=== PATIENT | female | born 2005 | race African-American/Black ===

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

== ENCOUNTER 2023-08-11 12:15 | Emergency (ER) | payer MEDICAID ==
[~2023-08-11] VITALS: Ht 157.5 cm; Wt 115.0 kg
[~2023-08-11 12:15] MED LIST changes: -CEPH-585 PO; +FAMO-128 PO
--- NOTE | 2023-08-11 12:22 | NUR ---
MSE COMPLETED BY DOLORES YBARRA
[2023-08-11] MEDS ORDERED: ketorolac trometh inj. 60 MG/2 ML VIAL IM ONE (12:25)
[2023-08-11] MEDS ORDERED: diphenhydrAMINE 50 mg/ml inj IM ONE (12:25)
[2023-08-11] MEDS ORDERED: metoclopramide 5 mg/ml inj IM ONE (12:25)
[2023-08-11 14:26] VITALS: BP 112/68; PULSE 92; TEMP 98.1; O2SAT 97
[2023-08-11 14:30] VITALS: RESP 16
--- NOTE | 2023-08-11 14:53 | NUR ---
I have reviewed the assessments performed by GRECIA Win in this chart and concur.
== END 2023-08-11 14:34 | disposition home or self-care (01) ==
LOC: ER 12:15
DX: G43.909 Migraine, unspecified, not intractable, without status migrainosus (principal); G93.2 Benign intracranial hypertension; Z79.899 Other long term (current) drug therapy
CPT/HCPCS: 96372; 99284; J1885; J2765

== ENCOUNTER 2023-09-30 15:42 | Emergency (ER) | payer MEDICAID ==
[~2023-09-30] VITALS: Ht 157.5 cm; Wt 116.2 kg
[2023-09-30 15:43] VITALS: BP 118/88; PULSE 113; RESP 16; TEMP 98; O2SAT 99
[2023-09-30] MEDS ORDERED: CEFD300C3 PO (16:16)
== END 2023-09-30 16:30 | disposition home or self-care (01) ==
LOC: ER 15:43
DX: J20.9 Acute bronchitis, unspecified (principal)
CPT/HCPCS: 99283

== ENCOUNTER 2025-07-10 19:52 | Emergency (ER) | payer MEDICAID ==
[~2025-07-10] VITALS: Ht 157.5 cm; Wt 116.0 kg
[~2025-07-10 19:52] MED LIST changes: +ONDA-243 PO; -ONDA4TAB12 PO
[2025-07-10] MEDS ORDERED: ACYC-129 PO (21:18)
[2025-07-10] MEDS ORDERED: CEPH-585 PO (21:18)
--- NOTE | 2025-07-10 21:19 | Physician Documentation ---
History of Present Illness ~ Chief Complaint: Rash Stated Complaint: BLISTERS ON SIDE Time Seen by MD: 21:05 Primary Medical Doctor: [facility] Patient presents to the emergency room for evaluation of rash in her right axillary area. She noticed it a couple of days ago. She states that she initially felt that has a little pimple and she popped it but it got worse. No fevers. No prior instances. Medication Reconciliation Allergies: Coded Allergies: No Known Allergies (Unverified , 12/31/22) Scheduled Famotidine (Pepcid), 1 TAB PO Q12H Scheduled PRN ONDANSETRON ODT 4mg tablet (Ondansetron Odt), 1 TABLET PO Q6H PRN for nausea/vomiting ONDANSETRON ODT 4mg tablet (Ondansetron Odt), 1 TABLET PO Q6H PRN for nausea/vomiting Past Medical History Past Medical History: No Pertinent History Past Surgical History: no surgical history Alcohol Use: None Drug Use: none Review of Systems ROS All review of systems negative except as per HPI Physical Exam Vital Signs: Temperature: 97.7, Heart Rate: 102, Respiratory Rate: 16, BP: 195/111, Pulse Oximetry: 97, Weight: 116.000 Oxygen Flow Rate: 0 Physical Exam General: Patient is awake, alert, oriented x4 in no acute distress and well appearing.~ Head: Normocephalic and atraumatic. Eyes: Conjunctival normal. EOMI. PERRL. ENT: Mucous membranes moist. Neck: Supple, trachea is midline. Chest: Clear to auscultation bilaterally without rales, rhonchi, or wheezes. There is no accessory muscle use or retractions. Cardiac: RRR without murmurs, gallops, or rubs. Skin: Folliculitis noted in patient's right axillary area measuring 3 cm x 3 cm. No fluctuance. Progress Results/Orders Results/Orders Vital Signs 07/10/25 20:19 Temp 97.7 Pulse 102 Resp 16 B/P (MAP) 195/111 Pulse Ox 97 O2 Flow Rate 0 Laboratory Tests Test 07/10/25 20:49 Urine Comment Medical Decision Making Findings Patient presented to the emergency room for evaluation of a rash as per HPI. Differentials include but are not limited to folliculitis, abscess, shingles. Noted elevation of blood pressure however upon entry of the room patient's blood pressure is 135 systolic. He had not feel she requires emergent labs for investigation and hypertensive emergency/preeclampsia. She is 15 weeks in his not qualify for preeclampsia yet. The need to follow up with her doctor discussed. Possibility of shingles and given risks versus benefits we will begin treatment for shingles as well. ER precautions discussed Departure Disposition: HOME / SELF CARE / HOMELESS Impression: Primary Impression: Infection of skin and subcutaneous tissue Condition: Stable Discharge Instructions: Cellulitis, Adult Referrals: NO PRIMARY CARE PROVIDER (PCP) Prescriptions Acyclovir* (Zovirax*) 800 Mg Tablet 1 TAB PO 5XD for 7 Days, #35 TAB Prov: ANDREA BANKS MD 07/10/25 Cephalexin*Monohydrate* (Keflex*) 500 Mg Capsule 1 CAP PO Q12H for 10 Days, #20 CAP Prov: ANDREA BANKS MD 07/10/25 Education Educated: Patient Educated regarding: diagnosis, treatment, need for follow up Signature Scribe Signature: No scribe Attestation: The note accurately reflects work and decisions made by me.Andrea Banks MD 07/10/25 21:19 ANDREA BANKS MD Jul 10, 2025 21:19
[2025-07-10 21:34] VITALS: BP 135/77; PULSE 90; RESP 16; TEMP 97.7; O2SAT 98
[2025-07-10 21:39] LABS: LEUKOCYTE ESTERASE ,URINE NEGATIVE (Neg); NITRITES, URINE NEGATIVE (Neg); OCCULT BLOOD,URINE TRACE-INTACT (Neg)
[2025-07-10 21:54] LABS: UA COLLECTION TYPE NON-SPECIFIED
[2025-07-10 21:57] LABS: SQUAMOUS EPITHELIAL CELL,UR MODERATE /LPF (FEW)
== END 2025-07-10 22:01 | disposition home or self-care (01) ==
LOC: ER 19:52
DX: L08.9 Local infection of the skin and subcutaneous tissue, unspecified (principal); Z79.899 Other long term (current) drug therapy
CPT/HCPCS: 81001; 87088; 99283

== ENCOUNTER 2025-07-26 14:08 | Emergency (ER) | payer MEDICAID ==
[~2025-07-26] VITALS: Ht 157.5 cm; Wt 131.1 kg
[2025-07-26 16:03] VITALS: BP 168/102; PULSE 99; RESP 18; O2SAT 100
--- NOTE | 2025-07-26 16:59 | Physician Documentation ---
History of Present Illness ~ Chief Complaint: Headache Stated Complaint: HEADACHE Time Seen by MD: 16:52 Primary Medical Doctor: [facility] HPI This is a 19-year-old female presents with two days of left-sided headache, patient reports she has had this similar headache pattern that has typically resolve with ibuprofen however she is 17 weeks and unable to take ibuprofen, patient reports he tried Tylenol without effect. Patient additionally reports nausea and light sensitivity. Reports no other acute symptoms or concerns. Medication Reconciliation Allergies: Coded Allergies: No Known Allergies (Unverified , 12/31/22) Scheduled Famotidine (Pepcid), 1 TAB PO Q12H Scheduled PRN Metoclopramide HCl (Reglan), 1 TAB PO Q8H PRN for nausea/vomiting ONDANSETRON ODT 4mg tablet (Ondansetron Odt), 1 TABLET PO Q6H PRN for nausea/vomiting ONDANSETRON ODT 4mg tablet (Ondansetron Odt), 1 TABLET PO Q6H PRN for nausea/vomiting Discontinued Medications Cephalexin*Monohydrate* (Keflex*), 1 CAP PO Q12H Discontinued Reason: Auto Discontinued Past Medical History Past Medical History: No Pertinent History Past Surgical History: no surgical history Alcohol Use: None Drug Use: none Review of Systems ROS As stated above in the HPI, otherwise all systems are reviewed and negative. Physical Exam Vital Signs: Temperature: 97.7, Source: Oral, Heart Rate: 99, Respiratory Rate: 18, BP: 168/102, Pulse Oximetry: 100, Weight: 131.100 Oxygen Flow Rate: 0 Physical Exam VITALS: Reviewed and as above. GENERAL: Alert, nontoxic appearing, no apparent distress. HEENT: PERRLA, EOMI RESPIRATORY: No increased work of breathing, no respiratory distress, speaking in full clear sentences, clear lung sounds in all gutierrez CV: Regular rate and rhythm no murmur. No lower extremity edema BACK: No CVA tenderness MUSCULOSKELETAL: SKIN: Warm dry Progress Results/Orders Results/Orders Completed Orders - DRAA BARBER [employer] Normal Saline 1000ml (0.9% Sodium Chlori (07/26/25 16:50) Acetaminophen 1,000mg/100ml Iv (Ofirmev (07/26/25 16:50) Metoclopramide Inj (Reglan Inj) (07/26/25 16:50) Diphenhydramine Inj (Benadryl Inj.) (07/26/25 16:50) Cbc/Diff (07/26/25 17:43) CMP (07/26/25 17:43) Man Diff (07/26/25 17:52) Ua With Microscopic (07/26/25 19:15) Medications Received in ER Medications (Trade) Dose Ordered Sig/Trinity Route PRN Reason Start Time Stop Time Status Last Admin Dose Admin (0.9% sodium chloride (NS) 1000ml IV soln) 1,000 ml ONCE ONCE IVB 07/26/25 16:50 07/26/25 16:52 DC 07/26/25 17:15 1,000 ML Acetaminophen 100 ml @ 400 mls/hr ONCE ONCE IV 07/26/25 16:50 07/26/25 17:04 DC 07/26/25 17:09 400 MLS/HR (Reglan inj) 10 mg ONCE ONCE IV 07/26/25 16:50 07/26/25 16:52 DC 07/26/25 17:07 10 MG (Benadryl inj.) 25 mg ONCE ONCE IV 07/26/25 16:50 07/26/25 16:52 DC 07/26/25 17:06 25 MG Vital Signs 07/26/25 07/26/25 14:29 16:03 Temp 97.7 97.7 Pulse 100 99 Resp 18 18 B/P (MAP) 168/102 168/102 (124) Pulse Ox 99 100 O2 Flow Rate 0 0 Laboratory Tests Test 07/26/25 17:52 07/26/25 19:15 White Blood Count 8.3 Red Blood Count 4.57 Hemoglobin 12.8 Hematocrit 36.7 Mean Corpuscular Volume 80.2 Mean Corpuscular Hemoglobin 28.0 Mean Corpuscular Hemoglobin Concent 34.9 Red Cell Distribution Width 14.2 Platelet Count 288 Mean Platelet Volume 8.9 Neutrophils (%) (Auto) 76.4 H Lymphocytes (%) (Auto) 14.2 L Monocytes (%) (Auto) 8.9 Eosinophils (%) (Auto) 0.3 Basophils (%) (Auto) 0.2 Neutrophils # (Auto) 6.4 Lymphocytes # (Auto) 1.2 Monocytes # (Auto) 0.7 Eosinophils # (Auto) 0.0 Basophils # (Auto) 0.0 CBC Comment Differential Total Cells Counted 100 Neutrophils % (Manual) 79.0 H Lymphocytes % (Manual) 12.0 L Monocytes % (Manual) 9.0 Platelet Estimate Normal Red Blood Cell Morphology Normal Basophilic Stippling Sodium Level 136 Potassium Level 3.7 Chloride Level 103 Carbon Dioxide Level 25.5 Anion Gap 8 Blood Urea Nitrogen 5 L Creatinine 0.60 Estimated GFR/1.73 m2 > 90 BUN/Creatinine Ratio 8.3 L Glucose Level 85 Calcium Level 8.5 Total Bilirubin 0.3 Aspartate Amino Transf (AST/SGOT) 21 Alanine Aminotransferase (ALT/SGPT) 35 Alkaline Phosphatase 39 L Total Protein 6.7 Albumin 2.9 L Globulin 3.8 Albumin/Globulin Ratio 0.8 L Chemistry Comments Urine Specimen Description Cln catch midstream Urine Color Yellow Urine Clarity Slightly cloudy Urine pH 7.0 Urine Specific [place] 1.020 Urine Protein Negative Urine Glucose (UA) Negative Urine Ketones >=80 Urine Occult Blood Negative Urine Nitrite Negative Urine Bilirubin Negative Urine Urobilinogen 0.2 Urine Leukocyte Esterase Negative Urine RBC 0-2 Urine WBC 5-10 H Urine Squamous Epithelial Cells Many Urine Bacteria 4+ Volume Urine Centrifuged 10 ml Urine Comment Medical Decision Making Additional information obtaine: N/A Findings This is a 19-year-old female who presents with left-sided headache and nausea similar to similar previous headache patterns, as patient is 17 weeks she is unable to use ibuprofen which normally resolves headaches. Patient is otherwise well-appearing, has no focal neurologic signs, and physical exam benign. Patient responded well to IV Tylenol, fluids and Reglan reporting resolution of headache symptoms and nausea. Lab work without significant abnormality including no proteinuria or evidence of end-organ damage due to elevated blood pressure. It is reassuring patient reported similar headache pattern and responded well to medications, as patient is otherwise well- appearing in his hemodynamically stable she is appropriate for outpatient follow up. Patient provided home care instructions, return to care precautions, and follow up instructions which he verbalized understanding of. Differential Dx:Considerations: Include: NAGEL-Cluster, NAGEL-Migraine, NAGEL- Hypertensive, NAGEL-Muscular contraction, NAGEL-Post lumbar puncture, Close head injuyr, CVA, Hemorrhage-Epidural, Hemorrhage-Intracerebral, Hemorrhage- Subarachnoid, Hemorrhage-Subdural, Meningitis, Post-traumtic, Pseudotumor cerebri, Sinusitis, Temporal arteritis, Trigeminal neuralgia Departure Disposition: HOME / SELF CARE / HOMELESS Impression: Primary Impression: Headache Qualified Codes: R51.9 - Headache, unspecified Condition: Improved Discharge Instructions: Headache Additional Instructions: It is reassuring your headache responded well to medications, you may use Tylenol as needed for headaches, I have prescribed you Reglan that you may use for nausea that occurs with headaches. Please follow up with your primary care provider in the next few days. Please return to the emergency department for any new or worsening concerning symptoms. Your blood pressure was noted to be elevated, please follow up with your primary care provider and or OB about high blood pressure and . Referrals: NO PRIMARY CARE PROVIDER (PCP) Prescriptions Metoclopramide HCl (Reglan) 5 Mg Tablet 1 TAB PO Q8H PRN for nausea/vomiting for 20 Days, #60 TAB 0 Refills Take as needed for nausea occurring with headache Prov: DARA BARBER 07/26/25 Education Educated: Patient Educated regarding: diagnosis, treatment, prognosis, need for follow up Signature Scribe Signature: No Scribe Attestation: The note accurately reflects work and decisions made by me.SHEILA Becker 07/26/25 20:47 DARA BARBER Jul 26, 2025 16:59
[2025-07-26] MEDS: metoclopramide 5 mg/ml inj IV ONE (17:07)
[2025-07-26] MEDS: acetaminophen 1,000mg/100ml IV 100 ML IV ONE (17:09)
[2025-07-26] MEDS: normal saline 1000ML IV soln IVB ONE (17:15)
[2025-07-26 18:15] LABS: MEAN PLATELET VOLUME 8.9 FL (7.4-10.4); RED CELL DISTRIBUTION WIDTH 14.2 % (11.5-14.5)
[2025-07-26 18:31] LABS: CREATININE 0.60 MG/DL (0.40-0.90); TOTAL CARBON DIOXIDE 25.5 MMOL/L (24-32); eCRCL 117 ML/MIN; eGFR > 90 ML/MIN
[2025-07-26] MEDS ORDERED: METO5TAB85 PO (19:22)
[2025-07-26 20:07] LABS: LYMPHOCYTES % (MANUAL) 12.0 % (21-51); MONOCYTES % (MANUAL) 9.0 % (2-12); NEUTROPHILS % (MANUAL) 79.0 % (42-75); PLATELET ESTIMATE NORMAL
[2025-07-26 20:24] LABS: LEUKOCYTE ESTERASE ,URINE NEGATIVE (Neg); NITRITES, URINE NEGATIVE (Neg); OCCULT BLOOD,URINE NEGATIVE (Neg)
[2025-07-26 20:35] LABS: UA COLLECTION TYPE CLN CATCH MIDSTREAM
[2025-07-26 20:39] LABS: SQUAMOUS EPITHELIAL CELL,UR MANY /LPF (FEW)
[2025-07-26 20:49] VITALS: TEMP 97.7
== END 2025-07-26 20:58 | disposition home or self-care (01) ==
LOC: ER 14:09
DX: R51.9 Headache, unspecified (principal); R11.0 Nausea
CPT/HCPCS: 36415; 80053; 81001; 85025; 96361; 96374; 96375; 99284; J0131; J1200; J2765; J7030; 85007

== ENCOUNTER 2025-07-27 09:28 | Emergency (ER) | payer MEDICAID ==
[~2025-07-27] VITALS: Ht 157.5 cm; Wt 131.9 kg
[~2025-07-27 09:28] MED LIST changes: +METO5TAB85 PO
--- NOTE | 2025-07-27 11:31 | Physician Documentation ---
History of Present Illness ~ Chief Complaint: Headache Stated Complaint: HEAD PAIN Time Seen by MD: 10:28 Primary Medical Doctor: [facility] Source: patient Mode of Arrival: POV Exam Limitations: no limitations HPI 19-YEAR-OLD FEMALE WITH HISTORY OF IDIOPATHIC INTRACRANIAL HYPERTENSION SHE SEES DR. KELLY OLVERA A NEURO RADIO TALK SHOW HOST AT [facility] HER SPECIALIST BUT HAS NOT HAD ANY FOLLOW UP IN SEVERAL MONTHS. PATIENT WAS PRIOR TO BEING ON DIAMOX AND WILL TAKE IBUPROFEN INTERMITTENTLY FOR HEADACHES. PATIENT STATES SHE HAS HAD THIS HEADACHE LINGERING FOR 3 DAYS. IT INITIALLY FELT LIKE A PINCHED TO THE BACK OF HER NECK BUT IT HAS NOT GOTTEN ANY BETTER. PATIENT WAS IN THE ER YESTERDAY. PATIENT IS ALSO APPROXIMATELY 17 WEEKS . PATIENT'S NEXT OB APPOINTMENT [place] IS ON August Medication Reconciliation Allergies: Coded Allergies: No Known Allergies (Unverified , 07/27/25) Scheduled Famotidine (Pepcid), 1 TAB PO Q12H Scheduled PRN Metoclopramide HCl (Reglan), 1 TAB PO Q8H PRN for nausea/vomiting ONDANSETRON ODT 4mg tablet (Ondansetron Odt), 1 TABLET PO Q6H PRN for nausea/vomiting ONDANSETRON ODT 4mg tablet (Ondansetron Odt), 1 TABLET PO Q6H PRN for nausea/vomiting Discontinued Medications Cephalexin*Monohydrate* (Keflex*), 1 CAP PO Q12H Discontinued Reason: Auto Discontinued Past Medical History Past Medical History: No Pertinent History, *[employer]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 HEENT: PERRL, EOMI, NO INJECTION, MOIST MUCOUS MEMBRANES. NECK: FULL RANGE OF MOTION. RESPIRATORY: LUNGS CLEAR, NO RESPIRATORY DISTRESS. CHEST: NO ACCESSORY MUSCLE USE. CARDIOVASCULAR: REGULAR RATE AND RHYTHM, NO MURMURS. EXTREMITIES: NORMAL RANGE OF MOTION, NO DEFORMITY. NEUROLOGIC: ORIENTED X4. CRANIAL NERVES GROSSLY INTACT NEGATIVE PRONATOR DRIFT PSYCHIATRIC: NORMAL MOOD AND AFFECT. SKIN: NORMAL COLOR, WARM AND DRY. NO EDEMA, NO ECCHYMOSIS. Progress Results/Orders Results/Orders Completed Orders - DENISE BOOTH NP Cbc/Diff (07/27/25 11:55) Normal Saline 1000ml (0.9% Sodium Chlori (07/27/25 11:55) BMP (07/27/25 11:55) Ua W/Microscopic, Cult If Ind (07/27/25 13:00) Medications Received in ER Medications (Trade) Dose Ordered Sig/Trinity Route PRN Reason Start Time Stop Time Status Last Admin Dose Admin (0.9% sodium chloride (NS) 1000ml IV soln) 1,000 ml ONCE ONCE IVB 07/27/25 11:55 07/27/25 12:02 DC 07/27/25 11:55 1,000 ML Vital Signs 07/27/25 07/27/25 07/27/25 09:54 11:36 13:15 Temp 97.7 97.7 Pulse 116 112 99 Resp 16 16 16 B/P (MAP) 155/106 154/100 (118) 125/79 (94) Pulse Ox 98 98 99 O2 Flow Rate 0 0 0 Laboratory Tests Test 07/27/25 12:17 07/27/25 13:00 White Blood Count 8.4 Red Blood Count 4.57 Hemoglobin 12.6 Hematocrit 36.2 Mean Corpuscular Volume 79.3 Mean Corpuscular Hemoglobin 27.7 Mean Corpuscular Hemoglobin Concent 34.9 Red Cell Distribution Width 14.3 Platelet Count 294 Mean Platelet Volume 8.9 Neutrophils (%) (Auto) 72.3 Lymphocytes (%) (Auto) 17.9 L Monocytes (%) (Auto) 8.7 Eosinophils (%) (Auto) 0.5 Basophils (%) (Auto) 0.6 Neutrophils # (Auto) 6.1 Lymphocytes # (Auto) 1.5 Monocytes # (Auto) 0.7 Eosinophils # (Auto) 0.0 Basophils # (Auto) 0.1 CBC Comment Sodium Level 137 Potassium Level 3.6 Chloride Level 106 Carbon Dioxide Level 24.8 Anion Gap 6 L Blood Urea Nitrogen 6 L Creatinine 0.63 Estimated GFR/1.73 m2 > 90 BUN/Creatinine Ratio 9.5 L Glucose Level 96 Calcium Level 8.8 Albumin 2.9 L Chemistry Comments Urine Specimen Description Non-specified Urine Color Yellow Urine Clarity Slightly cloudy Urine pH 6.5 Urine Specific [place] 1.020 Urine Protein Negative Urine Glucose (UA) Negative Urine Ketones Trace H Urine Occult Blood Negative Urine Nitrite Negative Urine Bilirubin Negative Urine Urobilinogen 0.2 Urine Leukocyte Esterase Negative Urine RBC 10-20 Urine WBC 0-4 Urine Squamous Epithelial Cells Many Urine Amorphous Phosphates 2+ Urine Bacteria 2+ Urine Culture Indicated Not ind Volume Urine Centrifuged 10 ml Urine Comment Medical Decision Making Additional information obtaine: old records Findings Patient is 17 weeks with idiopathic intracranial hypertension where she was on Diamox and will take ibuprofen for intermittent headaches due to this condition she was being seen by [facility] Dr. Kelly Berger. Patient's records were reviewed from previous ER visit yesterday patient's blood pressure at yesterday's visit was in the 160s systolic as well as today. Patient states she has no history of hypertension. Patient's OB appointment is August 08, 2025 a L of fluid did help some with the headache but she still continues to have the headache. Without neuro deficits monitored blood pressure with the last few blood pressures after a L of fluid being in the 120s systolic. Patient would like to go home and follow up with Ob. Urinalysis was negative for protein patient desires to go home. Discussed case with attending physician Differential Dx:Considerations: Include: Other Departure Time of Disposition: 13:48 Disposition: 01 HOME / SELF CARE / HOMELESS Impression: Primary Impression: Headache Condition: Stable Discharge Instructions: Headache Additional Instructions: Call and make an appointment with [facility] as well as with Ob to discuss your continued symptoms over the past 3 days. Take Tylenol rest and stay well hydrated. Referrals: NO PRIMARY CARE PROVIDER (PCP) Education Educated: Patient Educated regarding: diagnosis, treatment, need for follow up Signature Scribe Signature: No scribe Attestation: The note accurately reflects work and decisions made by me.Denise SOSA 07/27/25 11:31 DENISE BOOTH NP Jul 27, 2025 11:31
[2025-07-27] MEDS: normal saline 1000ML IV soln IVB ONE (11:55)
[2025-07-27 12:37] LABS: MEAN PLATELET VOLUME 8.9 FL (7.4-10.4); RED CELL DISTRIBUTION WIDTH 14.3 % (11.5-14.5)
[2025-07-27 12:45] LABS: CREATININE 0.63 MG/DL (0.40-0.90); TOTAL CARBON DIOXIDE 24.8 MMOL/L (24-32); eCRCL 112 ML/MIN; eGFR > 90 ML/MIN
[2025-07-27 13:15] VITALS: TEMP 97.7
[2025-07-27 13:24] LABS: LEUKOCYTE ESTERASE ,URINE NEGATIVE (Neg); NITRITES, URINE NEGATIVE (Neg); OCCULT BLOOD,URINE NEGATIVE (Neg)
[2025-07-27 13:28] LABS: UA COLLECTION TYPE NON-SPECIFIED
[2025-07-27 13:29] LABS: SQUAMOUS EPITHELIAL CELL,UR MANY /LPF (FEW)
[2025-07-27 13:31] LABS: AMORPHOUS PHOSPHATES 2+
[2025-07-27 13:59] VITALS: BP 147/49; PULSE 100; RESP 18; O2SAT 99
== END 2025-07-27 14:05 | disposition home or self-care (01) ==
LOC: ER 09:28
DX: O99.352 Diseases of the nervous system complicating pregnancy, second trimester (principal); R51.9 Headache, unspecified; Z79.899 Other long term (current) drug therapy; Z3A.17 17 weeks gestation of pregnancy
CPT/HCPCS: 36415; 80048; 81001; 85025; 96360; 99283; J7030